=== PATIENT | female | born 1950 | race Caucasian/White ===

== ENCOUNTER 2018-12-22 13:41 | Emergency (ER) | payer MEDICARE ==
--- NOTE | 2018-12-22 14:18 | ER Document Report ---
ED General - General Chief Complaint: High Blood Pressure Stated Complaint: BLOOD PRESSURE ISSUES Time Seen by Provider: 12/22/18 13:46 Notes: 68-year-old female sent from urgent care due to concerns over possible stroke. Patient apparently went to urgent care because she is having some change in the vision out of her right eye and some tingling on the right side of her body since Saturday. She cannot describe exactly how the vision in her right eye is different, denies any double vision or decrease in vision, states it is just different. Denies any weakness or unsteadiness, denies any falls or stumbling. States that the right side of her body is just tingly. Denies any injuries. Denies any pain. Denies any difficulty speaking or swallowing. Past Medical History - General Information source: Patient - Social History Smoking Status: Never Smoker Frequency of alcohol use: Rare Drug Abuse: None Family History: Reviewed & Not Pertinent, CAD - Mother had a stroke and a heart attack older than 75 years old. Review of Systems - Review of Systems Constitutional: No symptoms reported EENT: See HPI Neurological/Psychological: See HPI -: Yes All other systems reviewed and negative Physical Exam - Vital signs Vitals: Pulse Resp BP Pulse Ox 53 L 13 193/90 H 98 12/22/18 14:02 12/22/18 14:02 12/22/18 14:02 12/22/18 14:02 - Notes Notes: GENERAL: Alert, interacts well. No acute distress. HEAD: Normocephalic, atraumatic EYES: Pupils equal, round and reactive to light, extraocular movements intact. Funduscopic exam normal. There is no evidence of retinal detachment. Visual f ields are intact, no evidence of diplopia, when covering the right eye patient states that the vision in her left eye is almost normal, when covering her left eye the patient states that the vision in her right eye is almost normal. When not covering either eye she states that the vision in her right eye is not normal but she cannot tell me how. ENT: Oral mucosa moist, tongue midline. NECK: Full range of motion, supple, trachea midline. LUNGS: Clear to auscultation bilaterally, no wheezes, rales or rhonchi, no respiratory distress. HEART: Regular rate and rhythm, no murmurs, gallops, rubs. ABDOMEN: Soft, nontender, nondistended, bowel sounds present in all 4 quadrants. EXTREMITIES: Moves all 4 extremities spontaneously, no edema, radial and dorsalis pedis pulses 2/4 bilaterally. No cyanosis. NEUROLOGICAL: Alert and oriented x3, normal speech, cranial nerves II through XII grossly intact, biceps and patellar DTRs 2+ bilaterally. Ogkg-um-njdc and yhezyq-xz-oanx testing intact, able to differentiate sharp versus dull across right and left side of her body. PSYCH: Normal mood, normal affect. SKIN: Warm, Dry, normal turgor, no rashes or lesions noted. Course - Re-evaluation Re-evalutation: 12/22/18 16:18 CBC unremarkable, coags normal, CMP unremarkable, cardiac enzymes negative, CT scan of the head shows chronic changes but nothing new or acute, chest x-ray shows no acute process. Patient's NIH stroke scale is 0. Patient does not have reproducible numbness, she actually characterizes the feeling down the right side of her body as tingling. I cannot demonstrate a significant change in her vision. At this time I do not have a good explanation for what is causing her symptoms. I did discuss with her the possibility of doing an MRI to more fully rule out a very small stroke that is not showing up on her CAT scan. I also offered admission for carotid Dopplers, TTE and other risk factor reduction. Patient states she would prefer to follow-up as an outpatient. Patient will be provided with the names of several primary care physicians for outpatient follow-up. Patient and daughter are in agreement with this plan. Patient will be discharged home. - Vital Signs Vital signs: Temp Pulse Resp BP Pulse Ox 53 L 13 193/90 H 98 12/22/18 14:02 12/22/18 14:02 12/22/18 14:02 12/22/18 14:02 - Laboratory Result Diagrams: 12/22/18 15:10 12/22/18 15:10 Laboratory results interpreted by me: 12/22/18 15:10 RDW 14.1 H - EKG Interpretation by Me Additional EKG results interpreted by me: 12/22/18 16:19 EKG shows sinus bradycardia cardia at a rate of 54, left axis deviation, normal intervals, no ST segment elevations or depressions, no T wave inversions per my interpretation. Discharge - Discharge Clinical Impression: tingling right side of body, Vision changes Condition: Stable Disposition: HOME, SELF-CARE Additional Instructions: I do not know exactly what is causing the tingling on the right side of your body or your vision change. Your vision is only very slightly impaired. Right eye is 20/50, left eye is 20/40 combined is 20/25. I would like you to be seen by an marine habitat resource specialist in the next few days to have a more detailed eye exam performed. Today I see no signs of a stroke on your CAT scan. I do want you to follow-up as an outpatient with a primary care physician to do further investigation to look at your risk factors for stroke including possibly doing ultrasounds of your carotids and wearing a panel monitor for 24 hours, sometimes notice a Holter monitor to look at your heart rate and rhythm. If you develop weakness, numbness instead of just tingling, inability to feel something on the right-hand side or worsening vision please return to the emergency department. Referrals: ANISH CUNNINGHAM MD [ACTIVE STAFF] - Follow up as needed RICO LAND MD [EMERITUS] - Follow up as needed
--- NOTE | 2018-12-22 14:45 | RADIOLOGY REPORT (SQ) ---
EXAM DESCRIPTION: CHEST SINGLE VIEW COMPLETED DATE/TIME: 12/22/2018 2:29 pm REASON FOR STUDY: right sided numbness COMPARISON: None. EXAM PARAMETERS: NUMBER OF VIEWS: One view. TECHNIQUE: Single frontal radiographic view of the chest acquired. RADIATION DOSE: NA LIMITATIONS: None. FINDINGS: LUNGS AND PLEURA: No opacities, masses or pneumothorax. No pleural effusion. MEDIASTINUM AND HILAR STRUCTURES: No masses. Contour normal. HEART AND VASCULAR STRUCTURES: Heart normal in size. Normal vasculature. BONES: No acute findings. HARDWARE: None in the chest. OTHER: No other significant finding. IMPRESSION: NO ACUTE RADIOGRAPHIC FINDING IN THE CHEST. TECHNICAL DOCUMENTATION: JOB ID: [id number] [employer]- All Rights Reserved Reading location - IP/workstation name: [email or web address]
--- NOTE | 2018-12-22 14:47 | RADIOLOGY REPORT (SQ) ---
EXAM DESCRIPTION: CT HEAD WITHOUT COMPLETED DATE/TIME: 12/22/2018 2:24 pm REASON FOR STUDY: right sided numbness COMPARISON: None. TECHNIQUE: Axial images acquired through the brain without intravenous contrast. Images reviewed wi th bone, brain and subdural windows. Additional sagittal and coronal reconstructions were generated. Images stored on PACS. All CT scanners at this facility use dose modulation, iterative reconstruction, and/or weight based d osing when appropriate to reduce radiation dose to as low as reasonably achievable (ALARA). [facility]: Dose Right [facility]: CareDose [facility]: Dose Right [facility]: Teradose 4D [facility]: [employer] RADIATION DOSE: CT Rad equipment meets quality standard of care and radiation dose reduction techniq ues were employed. CTDIvol: 53.2 mGy. DLP: 1070 mGy-cm. mGy. LIMITATIONS: None. FINDINGS: VENTRICLES: Slightly prominent, atrophy related. No hemorrhage. CEREBRUM: Old areas of encephalomalacia in the right frontal, left occipital and right occipital lobe s. Suggestive of old infarcts. No evidence of acute infarct. Small vessel disease also noted, patch y deep periventricular including the right basal ganglia particularly. CEREBELLUM: No masses. No hemorrhage. No alteration of density. No evidence for acute infarction. EXTRAAXIAL SPACES: No fluid collections. No masses. ORBITS AND GLOBE: No intra- or extraconal masses. Normal contour of globe without masses. CALVARIUM: No fracture. PARANASAL SINUSES: No fluid or mucosal thickening. SOFT TISSUES: No mass or hematoma. OTHER: No other significant finding. IMPRESSION: 1. Chronic brain changes. 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 No acute abno rmality detected. EVIDENCE OF ACUTE STROKE: NO. COMMENT: Quality ID # [id number]: Final reports with documentation of one or more dose reduction techniques (e.g., Automated exposure control, adjustment of the mA and/or kV according to patient size, use of iterative reconstruction technique) TECHNICAL DOCUMENTATION: JOB ID: [id number] [employer]- All Rights Reserved Reading location - IP/workstation name: [email or web address]
[2018-12-22 15:23] LABS: ABSOLUTE BASOPHILS # (AUTO) 0.1 10^3/uL (0.0-0.2); ABSOLUTE EOSINOPHILS # (AUTO) 0.3 10^3/uL (0.0-0.6); ABSOLUTE LYMPHOCYTES (AUTO) 2.8 10^3/uL (0.5-4.7); ABSOLUTE MONOCYTES (AUTO) 0.6 10^3/uL (0.1-1.4); ABSOLUTE NEUT (AUTO) 6.4 10^3/uL (1.7-8.2); EOSINOPHILS % (AUTO) 2.9 % (0-6); HEMATOCRIT 41.4 % (36.0-47.0); HEMOGLOBIN 13.8 g/dL (12.0-15.5); LYMPHOCYTES % (AUTO) 27.8 % (13-45); MEAN CORPUSCULAR HEMOGLOBIN 30.1 pg (27.0-33.4); MEAN CORPUSCULAR HGB CONC 33.3 g/dL (32.0-36.0); MEAN CORPUSCULAR VOLUME 90 fl (80-97); MONOCYTES % (AUTO) 6.2 % (3-13); PLATELET COUNT 280 10^3/uL (150-450); RED BLOOD COUNT 4.58 10^6/uL (3.72-5.28); RED CELL DISTRIBUTION WIDTH 14.1 % (11.5-14.0); SEGMENTED NEUTROPHILS % (AUTO) 62.1 % (42-78); TOTAL CELLS COUNTED % (AUTO) 100 %; WHITE BLOOD COUNT 10.2 10^3/uL (4.0-10.5)
[2018-12-22 15:29] LABS: INTERNATIONAL RATION (INR) 0.99; PROTHROMBIN TIME 13.1 SEC (11.4-15.4)
[2018-12-22 15:30] LABS: PARTIAL THROMBOPLASTIN TIME 27.6 SEC (23.5-35.8)
[2018-12-22 15:53] LABS: ALKALINE PHOSPHATASE 80 U/L (38-126); ANION GAP 7 (5-19); ASPARTATE AMINO TRANSFERASE 22 U/L (14-36); BILIRUBIN,DIRECT 0.3 mg/dL (0.0-0.4); BILIRUBIN,TOTAL 0.8 mg/dL (0.2-1.3); BLOOD UREA NITROGEN 10 mg/dL (7-20); CALCIUM 9.7 mg/dL (8.4-10.2); CARBON DIOXIDE 28 mmol/L (22-30); CHLORIDE 103 mmol/L (98-107); CREATINE KINASE 42 U/L (30-135); GLUCOSE 96 mg/dL (75-110); POTASSIUM 4.3 mmol/L (3.6-5.0); TOTAL PROTEIN 6.8 g/dL (6.3-8.2)
[2018-12-22 15:54] LABS: CREATINE KINASE MB 0.42 ng/mL (<4.55)
[2018-12-22 15:55] LABS: TROPONIN I < 0.012 ng/mL
[2018-12-22 16:40] VITALS: BP 191/95
--- NOTE | 2018-12-23 23:09 | EKG REPORT ---
SEVERITY:- ABNORMAL ECG - SINUS RHYTHM PROBABLE LVH WITH SECONDARY REPOL ABNRM PROBABLE INFERIOR INFARCT, AGE INDETERMINATE : Confirmed by: Randa Gomez 23-Dec-2018 23:08:29
== END 2018-12-22 16:41 | disposition home or self-care (01) ==
LOC: ER 13:41
DX: R20.0 Anesthesia of skin (principal); H53.9 Unspecified visual disturbance; I10 Essential (primary) hypertension
CPT/HCPCS: 36415; 70450; 71045; 80053; 82550; 82553; 82962; 84484; 85025; 85610; 85730; 93005; 93010

== ENCOUNTER 2019-06-06 22:40 | Emergency (ER) | payer MEDICARE, OTHER ==
--- NOTE | 2019-06-06 23:58 | ER Document Report ---
ED Medical Screen (RME) - General Stated Complaint: FOOT PAIN Notes: Patient is a 69-year-old white female with a past medical history of hypertension, anxiety and depression with a right total knee arthroplasty in February who presents to the emergency department with chief complaint of right foot pain. The patient states she was sitting and 2 dogs ran over her right knee. She states she was fine at the time and then attempted to get up and walk through the house and felt severe pain in the right foot. She states she was unable to ambulate and bear weight. She states that shortly after she started noticing some swelling to the dorsum medially of the right foot. States the foot is progressively worsening. She now complains of some mild pain in the right knee as well. She denies any history of gout. I have treated and performed a rapid initial assessment of this patient. A comprehensive ED assessment and evaluation of the patient, analysis of test results and completion of medical decision making process will be conducted by additional ED providers. PHYSICAL EXAMINATION: GENERAL: Well-appearing, well-nourished and in no acute distress. A&Ox4. Answers questions appropriately. TRAVEL OUTSIDE OF THE [place] IN LAST 30 DAYS: No Past Medical History - Past Medical History Cardiac Medical History: Reports: Hx Hypertension Physical Exam - Vital signs Vitals: Temp Pulse Resp BP Pulse Ox 97.8 F 57 L 14 208/98 H 100 06/06/19 23:06 06/06/19 23:06 06/06/19 23:06 06/06/19 23:06 06/06/19 23:06 Course - Vital Signs Vital signs: Temp Pulse Resp BP Pulse Ox 97.8 F 57 L 14 208/98 H 100 06/06/19 23:06 06/06/19 23:06 06/06/19 23:06 06/06/19 23:06 06/06/19 23:06
--- NOTE | 2019-06-07 00:58 | RADIOLOGY REPORT (SQ) ---
EXAM DESCRIPTION: XR FOOT 3 OR MORE VIEWS COMPLETED DATE/TME: 06/06/2019 23:56 CLINICAL HISTORY: 69 years, Female, pain COMPARISON: None. NUMBER OF VIEWS: 3 TECHNIQUE: LIMITATIONS: None. FINDINGS: Nondisplaced fracture third proximal phalanx. Alignment is anatomic. Osteoarthritis. Thymic soft tissue is unremarkable IMPRESSION: Nondisplaced fracture proximal metaphysis and epiphysis of the third proximal phalanx copyright 2011 [employer]- All Rights Reserved
--- NOTE | 2019-06-07 01:43 | ER Document Report ---
ED Extremity Problem, Lower - General Chief Complaint: Foot Pain Stated Complaint: FOOT PAIN Time Seen by Provider: 06/07/19 01:42 Notes: CHIEF COMPLAINT: Right foot and right knee injury HPI: 69-year-old female presenting to the emergency department complaining of right foot and right knee injury. This occurred yesterday. Patient states she went to get up from the table after dinner and felt sudden sharp pain in the right foot. States she has difficulty weightbearing secondary to the pain. Earlier yesterday 2 of their dogs ran over her knee and she complains of mild pain over the anterior knee. Did not twist the knee. Had recent knee replacement in February of last year. Patient denies numbness or tingling in the toes. Denies other injuries or complaints at this time ROS: See HPI - all other systems were reviewed and are otherwise negative Constitutional: no fever Integumentary: no rash Allergy: no hives Musculoskeletal: + extremity pain or swelling Neurological: no numbness/tingling, no weakness MEDICATIONS: I agree with the patient medications as charted by the RN. ALLERGIES: I agree with the allergies as charted by the RN. PAST MEDICAL HISTORY/PAST SURGICAL HISTORY: Reviewed and agree as charted by RN. SOCIAL HISTORY: Reviewed and agree as charted by RN. FAMILY HISTORY: No significant familial comorbid conditions directly related to patient complaint EXAM: Reviewed vital signs as charted by RN. CONSTITUTIONAL: Alert and oriented and responds appropriately to questions. Well-appearing; well-nourished, mild distress secondary to pain HEAD: Normocephalic; atraumatic EYES: Conjunctivae clear, sclerae non-icteric ENT: normal nose; no rhinorrhea; moist mucous membranes NECK: Supple without meningismus CARD: symmetric distal pulses RESP: Normal chest excursion without splinting or tachypnea ABD/GI: non-distended BACK: The back appears normal EXT: Slightly limited flexion extension of the right foot and the right knee secondary to complaints of pain. There is no overlying erythema to the right knee there is mild pain on palpation of the anterior right knee. Somewhat limited examination for anterior drawer and laxity given her recent knee replacement and discomfort. Patient has no tenderness on palpation of the medial or lateral malleolus of the right ankle. No proximal fibular pain on palpation of the right lower extremity. She has mild tenderness in the soft tissues of the lateral posterior right foot, over the distal medial dorsal aspect of the right foot. Sensation is intact in the toes with capillary refill less than 3 seconds. Dorsalis pedis and posterior tibial pulses are present in the right foot and ankle. SKIN: Normal color for age and race; warm; dry; good turgor; no acute lesions noted NEURO: Moves all extremities equally; Motor and sensory function intact PSYCH: The patient's mood and manner are appropriate. Grooming and personal hygiene are appropriate. MDM: 69-year-old female with injury to the right knee and right foot. X-ray imaging obtained earlier shows possible proximal third phalange fracture. Will obtain x-ray of the knee given her complaint. No other fractures identified in the foot TRAVEL OUTSIDE OF THE [place] IN LAST 30 DAYS: No - Related Data Allergies/Adverse Reactions: No Known Allergies Allergy (Unverified 06/06/19 23:57) Past Medical History - Social History Smoking Status: Never Smoker Chew tobacco use (# tins/day): No Frequency of alcohol use: None Drug Abuse: None Family History: Reviewed & Not Pertinent, CAD - Mother had a stroke and a heart attack older than 75 years old. Patient has suicidal ideation: No Patient has homicidal ideation: No - Past Medical History Cardiac Medical History: Reports: Hx Hypertension Psychiatric Medical History: Reports: Hx Depression Past Surgical History: Reports: Hx Orthopedic Surgery - rt knee replaced Physical Exam - Vital signs Vitals: Temp Pulse Resp BP Pulse Ox 97.8 F 57 L 14 208/98 H 100 06/06/19 23:06 06/06/19 23:06 06/06/19 23:06 06/06/19 23:06 06/06/19 23:06 Course - Re-evaluation Re-evalutation: 06/07/19 03:23 X-ray of the foot shows a fracture at the proximal third toe. Knee x-ray does not show acute abnormalities on my review. Patient states she has an orthopedic for follow-up. She declines crutches will use a walker, orthopedic shoe, pain medications, states she tolerates tramadol well - Vital Signs Vital signs: Temp Pulse Resp BP Pulse Ox 97.8 F 58 L 18 192/78 H 100 06/06/19 23:06 06/07/19 00:41 06/07/19 00:41 06/07/19 00:41 06/07/19 00:41 Discharge - Discharge Clinical Impression: Fracture of toe of right foot Qualifiers: Encounter type: initial encounter Toe: lesser toe Fracture type: closed Phalanx: proximal Fracture alignment: nondisplaced Qualified Code(s): S92.514A - Nondisplaced fracture of proximal phalanx of right lesser toe(s), initial encounter for closed fracture Contusion of knee, right Qualifiers: Encounter type: initial encounter Qualified Code(s): S80.01XA - Contusion of right knee, initial encounter Condition: Stable Disposition: HOME, SELF-CARE Instructions: Fractured Toe ([facility]) Additional Instructions: Use the postop shoe for comfort. Tramadol for pain, no driving if taking narcotics. Follow-up closely with orthopedics for further evaluation and treatment call for appointment Prescriptions: Tramadol HCl [Ultram 50 mg Tablet] 50 mg PO Q4HP PRN #12 tab PRN Reason:
[2019-06-07] MEDS ORDERED: TRAMADOL HCL 50 MG TABLET PO ONE (01:51)
--- NOTE | 2019-06-07 03:06 | RADIOLOGY REPORT (SQ) ---
CLINICAL HISTORY: injury COMPARISON: None. TECHNIQUE: XR KNEE 4 OR MORE VIEWS 06/07/2019 1:51 AM [employer] [facility] FINDINGS: There is no fracture. Total knee arthroplasty was performed. Soft tissues are unremarkable. IMPRESSION: No acute osseous findings.
[2019-06-07 03:40] VITALS: BP 188/92
== END 2019-06-07 03:40 | disposition home or self-care (01) ==
LOC: ER 22:40
DX: M79.671 Pain in right foot (principal); S80.01XA Contusion of right knee, initial encounter; W54.1XXA Struck by dog, initial encounter; Z96.651 Presence of right artificial knee joint; I10 Essential (primary) hypertension
CPT/HCPCS: 99283; 73630; 73564; A9270